=== PATIENT | female | born 1980 | race Caucasian/White ===

== ENCOUNTER 2017-11-25 18:48 | Emergency (ER) | payer OTHER ==
[~2017-11-25] VITALS: Ht 124.5 cm; Wt 47.7 kg
[2017-11-25] MEDS ORDERED: CYCLOBENZAPRINE HCL 10 MG TABLET PO ONE (20:30)
[2017-11-25] MEDS ORDERED: KETOROLAC TROMETHAMINE 10 MG TABLET PO ONE (20:30)
[2017-11-25 20:55] VITALS: BP 128/76
== END 2017-11-25 21:10 | disposition home or self-care (01) ==
LOC: EMS 18:49
DX: S33.5XXA Sprain of ligaments of lumbar spine, initial encounter (principal); S23.9XXA Sprain of unspecified parts of thorax, initial encounter; M62.830 Muscle spasm of back; V49.9XXA Car occupant (driver) (passenger) injured in unspecified traffic accident, initial encounter; Y93.89 Activity, other specified; Y92.89 Other specified places as the place of occurrence of the external cause; Y99.8 Other external cause status
CPT/HCPCS: 99283